=== PATIENT | female | born 1995 | race Caucasian/White ===

== ENCOUNTER 2017-10-28 13:13 | Emergency (ER) | END 2017-10-28 13:48 | disposition home or self-care (01) ==

== ENCOUNTER → 2018-05-02 | Outpatient (CLI) | END | disposition home or self-care (01) ==

== ENCOUNTER 2018-09-16 16:52 | Emergency (ER) | payer BC ==
[~2018-09-16] VITALS: Ht 162.6 cm; Wt 75.5 kg
[~2018-09-16 16:52] MED LIST: NAPR-688; ONDA4TAB35 PO
[2018-09-16 16:55] VITALS: BP 122/60; PULSE 82; RESP 18; Ht 162.6 cm; Wt 75.5 kg
[2018-09-16] MEDS ORDERED: LIDOCAINE 1% (MPF) 5 ML VIAL INFIL ONE (18:00)
--- NOTE | 2018-09-17 03:21 | ERD ---
ER Documentation Chief Complaint Chief Complaint right 2nd fnger nail injury HPI 23-year-old female presents for right second finger injury times 2 hours. She states that she struck the door over her finger. There was some bleeding noted. She states that she has 4 out of 10 pain. States that the nail was actually digging into her skin but she was able to get a different pulled it away from the skin which made her pain feel improve. Bleeding is currently controlled. Patient is worried that there is appears to be some bleeding underneath her nail. Denies chest pain or shortness of breath. Denies other modifying factors. ROS All systems reviewed and are negative except as per history of present illness. Medications Home Meds Active Scripts Ondansetron Hcl* (Zofran* ODT) 4 mg -ODT Tab.disper, 4 MG PO Q8 PRN for NAUSEA AND/OR VOMITING, #5 TAB Prov:PEYTONAIXAHennyMARIA R Weir 08/04/15 Reported Medications Naproxen* (Naproxen*) 500 Mg Tablet 08/03/13 Allergies Allergies: Coded Allergies: No Known Drug Allergies (Verified Allergy, 08/03/13) PMhx/Soc History of Surgery: Yes (nose surgery) Anesthesia Reaction: No Hx Neurological Disorder: No Hx Respiratory Disorders: No Hx Cardiac Disorders: No Hx Psychiatric Problems: No Hx Miscellaneous Medical Probl: No Hx Alcohol Use: No Hx Substance Use: No Hx Tobacco Use: No Smoking Status: Never smoker Physical Exam Vitals Temperature 97.9, pulse 82, respiration 18, blood pressure 122/60, O2 saturation 99% on room air. Physical Exam Const: No acute distress Resp: Clear to auscultation bilaterally Cardio: Regular rate and rhythm, no murmurs, cap refills less than 2 seconds in all fingers of the right hand Abd: Soft, non tender, non distended. Normal bowel sounds Skin: No petechiae or rashes Back: No midline or flank tenderness Ext: Right second fingernail avulsion injury noted, bleeding controlled. Patient has a crack on the fingernail over the nail bed, difficult to visualize the nail bed because patient had on acrylic fingernails Neur: Awake and alert, sensation intact in all fingers of the right hand Psych: Normal Mood and Affect Results 24 hrs Current Medications Medications Dose Sig/Angella Start Time Status Last (Trade) Ordered Route PRN Stop Time Admin Dose Reason Admin Lidocaine 5 ml ONCE ONCE 1/5/19 DC (Xylocaine INFIL 18:00 09/16/18 1% (Mpf)) 18:01 Procedures/MDM Medical Decision Making: Differential diagnosis includes but not limited to nail bed laceration, fingernail avulsion injury, fracture. Patient appear well on physical examination. The right second finger was neurovascularly intact. There was a crack over the nailbed on top of the nail. The nail was unable to be visualized due to chronic fingernails. A nail clipper was used to cut down the nail however was still difficult to visualize the nail bed. Attempts were made to moved the acrylic fingernail however due to the break in the nail, patient did not want to risk a full avulsion of the nail. Patient wanted to wait until the acrylic fingernail fell out on its own. She states that she will go home and use acetone to facilitate the acrylic fingernail removal. Discussed risk of possible nail bed laceration with patient. Patient advised to follow up with PCP in 1-2 days. Patient advised to return to ED for new or worsening symptoms. Patient stable on discharge from the ED. Disclaimer: Inadvertent spelling and grammatical errors are likely due to EHR/dictation software use and do not reflect on the overall quality of patient care. Also, please note that the electronic time recorded on this note does not necessarily reflect the actual time of the patient encounter. Departure Diagnosis: Primary Impression: Fingernail injury Condition: Fair Patient Instructions: Nail Avulsion, Partial Referrals: [facility] YOU HAVE RECEIVED A MEDICAL SCREENING EXAM AND THE RESULTS INDICATE THAT YOU DO NOT HAVE A CONDITION THAT REQUIRES URGENT TREATMENT IN THE EMERGENCY DEPARTMENT. FURTHER EVALUATION AND TREATMENT OF YOUR CONDITION CAN WAIT UNTIL YOU ARE SEEN IN YOUR DOCTORS OFFICE WITHIN THE NEXT 1-2 DAYS. IT IS YOUR RESPONSIBILITY TO MAKE AN APPOINTMENT FOR FOLOW-UP CARE. IF YOU HAVE A PRIMARY DOCTOR --you should call your primary doctor and schedule an appointment IF YOU DO NOT HAVE A PRIMARY DOCTOR YOU CAN CALL OUR PHYSICIAN REFERRAL HOTLINE AT IF YOU CAN NOT AFFORD TO SEE A PHYSICIAN YOU CAN CHOSE FROM THE FOLLOWING [facility] CLINICS [facility] [address] [facility] [address] [facility] [address] [facility]. [facility] [address] [facility] [address] [facility]. [facility] [address] Additional Instructions: Call your primary care doctor TOMORROW for an appointment during the next 1-2 days.See the doctor sooner or return here if your condition worsens before your appointment time. JOE MENDENHALL DO Sep 17, 2018 03:21
== END 2018-09-16 19:35 | disposition home or self-care (01) ==
LOC: FTE 16:52
DX: S61.320A Laceration with foreign body of right index finger with damage to nail, initial encounter (principal); W23.0XXA Caught, crushed, jammed, or pinched between moving objects, initial encounter; Y92.9 Unspecified place or not applicable
CPT/HCPCS: Z7502; Z7610; 99282

== ENCOUNTER 2019-02-27 11:25 | Emergency (ER) | payer BC ==
[~2019-02-27] VITALS: Ht 162.6 cm; Wt 71.5 kg
[2019-02-27 11:44] VITALS: BP 110/54; PULSE 60; RESP 18; Ht 162.6 cm; Wt 71.5 kg
[2019-02-27] MEDS ORDERED: AMOX1TAB10 PO (12:01)
[2019-02-27] MEDS ORDERED: IBUP-1542 PO (12:02)
--- NOTE | 2019-02-27 12:03 | ERD ---
ER Documentation Chief Complaint Chief Complaint sorethroat and white spots x2 days HPI 24-year-old female presents with sore throat x2 days. She reports she is noticed white spots in the back of her throat. She denies any recorded fever at home, denies coughing, denies any sick contacts, and denies any recent travel. She denies any nasal congestion, abdominal pain, nausea, vomiting, diarrhea. She states that her throat is very sore and makes it difficult for her to eat food and drink liquids. She reports her throat pain as a 9 out of 10. She has not taken any medication to help alleviate her symptoms. ROS All systems reviewed and are negative except as per history of present illness. Medications Home Meds Active Scripts Ibuprofen* (Motrin*) 600 Mg Tab, 600 MG PO Q8, #30 TAB Prov:ETHEL NEAL PA-C 02/27/19 Amoxicillin/Potassium Clav (Amox-Clav 875-125 mg Tablet) 875-125 mg Tab, 1 TAB PO BID for 7 Days, #14 TAB Prov:ETHEL NEAL PA-C 02/27/19 Ondansetron Hcl* (Zofran* ODT) 4 mg -ODT Tab.disper, 4 MG PO Q8 PRN for NAUSEA AND/OR VOMITING, #5 TAB Prov:MARIA R ABERNATHY 08/04/15 Reported Medications Naproxen* (Naproxen*) 500 Mg Tablet 08/03/13 Allergies Allergies: Coded Allergies: No Known Drug Allergies (Verified Allergy, 08/03/13) PMhx/Soc Medical and Surgical Hx: pt denies Medical Hx History of Surgery: Yes (nose surgery) Anesthesia Reaction: No Hx Neurological Disorder: No Hx Respiratory Disorders: No Hx Cardiac Disorders: No Hx Psychiatric Problems: No Hx Miscellaneous Medical Probl: No Hx Alcohol Use: No Hx Substance Use: No Hx Tobacco Use: No FmHx Family History: No diabetes Physical Exam Vitals Vital Signs Date Temp Pulse Resp B/P (MAP) Pulse Ox O2 O2 Flow FiO2 Time Delivery Rate 02/27/19 98.5 60 18 110/54 99 11:44 (72) Physical Exam Const: No acute distress Head: Atraumatic Eyes: Normal Conjunctiva, PERRLA ENT: Normal External Ears, Nose Mouth: [place] and moist. Throat- tonsils present with exudates. Erythematous ad inflamed Neck: Full range of motion. Cervical LAD Resp: Clear to auscultation bilaterally Cardio: Regular rate and rhythm, Abd: Soft, non tender, non distended. Skin: No petechiae or rashes Back: No midline or flank tenderness Ext: No cyanosis, or edema Neur: Awake and alert Psych: Normal Mood and Affect Procedures/MDM ED COURSE: The patient was stable throughout ED course. I kept the patient informed of laboratory and diagnostic imaging results throughout the ED course. MEDICATIONS GIVEN: [None.] MEDICAL DECISION MAKING: Patient is a 24-year-old female presenting with sore throat was exudates. She reports that her third is making it difficult for her to eat and drink appropriately. Patient's physical exam is consistent with presumed strep pharyngitis. Based on [facility] Criteria, patient has reported fever at home, exudates on tonsils, no cough. Patient is appropriate for outpatient antibiotics. Patient's physical exam include lungs which were clear to auscultation and a normal pulse oximetry. Bilateral ears pearly lee. No tenderness to palpation of tragus or mastoid. Low suspicion for mastoiditis, otitis externa, otitis media. Patient is speaking in full sentences. There is a low suspicion for pneumonia, epiglottitis, croup, sinusitis, peritonsillar abscess, hands foot mouth disease, scarlet fever, kawasaki disease, retropharyngeal abscess, meningitis, sepsis, acute abdomen or other emergent conditions. Vital signs were reviewed. Patient is afebrile. Patient was not hypoxic. Patient was hemodynamically stable. PRESCRIPTION: Amoxicillin DISCHARGE: At this time, patient is stable for discharge and outpatient management. I have instructed the patient to follow-up with his/her primary care physician in 1-2 days. I have discussed with the patient the possibility of needing to see a specialist for further workup and imaging studies if symptoms persist. I have instructed the patient to promptly return to the ER for any new or worsening symptoms including increased pain, fever, nausea, vomiting, weakness or LOC. The patient and/or family expressed understanding of and agreement with this plan. All questions were answered. Home care instructions were provided. Disclaimer: Inadvertent spelling and grammatical errors are likely due to EHR/dictation software use and do not reflect on the overall quality of patient care. Also, please note that the electronic time recorded on this note does not necessarily reflect the actual time of the patient encounter. Departure Diagnosis: Primary Impression: Strep throat Condition: Fair Patient Instructions: Strep Throat Referrals: [facility] YOU HAVE RECEIVED A MEDICAL SCREENING EXAM AND THE RESULTS INDICATE THAT YOU DO NOT HAVE A CONDITION THAT REQUIRES URGENT TREATMENT IN THE EMERGENCY DEPARTMENT. FURTHER EVALUATION AND TREATMENT OF YOUR CONDITION CAN WAIT UNTIL YOU ARE SEEN IN YOUR DOCTORS OFFICE WITHIN THE NEXT 1-2 DAYS. IT IS YOUR RESPONSIBILITY TO MAKE AN APPOINTMENT FOR FOLOW-UP CARE. IF YOU HAVE A PRIMARY DOCTOR --you should call your primary doctor and schedule an appointment IF YOU DO NOT HAVE A PRIMARY DOCTOR YOU CAN CALL OUR PHYSICIAN REFERRAL HOTLINE AT IF YOU CAN NOT AFFORD TO SEE A PHYSICIAN YOU CAN CHOSE FROM THE FOLLOWING [facility] [address] [facility]. [facility] [address] [facility]. [facility] [address] [facility]. [facility] [address] [facility]. [facility] [address] [facility]. [facility] [address] [facility]. [facility] YOU HAVE RECEIVED A MEDICAL SCREENING EXAM AND THE RESULTS INDICATE THAT YOU DO NOT HAVE A CONDITION THAT REQUIRES URGENT TREATMENT IN THE EMERGENCY DEPARTMENT. FURTHER EVALUATION AND TREATMENT OF YOUR CONDITION CAN WAIT UNTIL YOU ARE SEEN IN YOUR DOCTORS OFFICE WITHIN THE NEXT 1-2 DAYS. IT IS YOUR RESPONSIBILITY TO MAKE AN APPOINTMENT FOR FOLOW-UP CARE. IF YOU HAVE A PRIMARY DOCTOR --you should call your primary doctor and schedule and appointment IF YOU DO NOT HAVE A PRIMARY DOCTOR YOU CAN CALL OUR PHYSICIAN REFERRAL HOTLINE AT . IF YOU CAN NOT AFFORD TO SEE A PHYSICIAN YOU CAN CHOSE FROM THE FOLLOWING [facility] INSTITUTIONS: [facility] [address] [place] [address] [facility] [address] [place] [address] [facility] + [facility] [address] [place] [address] Additional Instructions: Call your primary care doctor TOMORROW for an appointment during the next 1-2 days.See the doctor sooner or return here if your condition worsens before your appointment time. ETHEL NEAL PA-C Feb 27, 2019 12:03
== END 2019-02-27 12:19 | disposition home or self-care (01) ==
LOC: FTE 11:25
DX: J02.9 Acute pharyngitis, unspecified (principal)
CPT/HCPCS: 99283